=== PATIENT | male | born 1990 | race Caucasian/White ===

== ENCOUNTER 2016-11-11 20:02 | Emergency (ER) | payer OTHER ==
[~2016-11-11] VITALS: Ht 182.8 cm; Wt 79.4 kg
[2016-11-11 20:30] LABS: BASO % 0.2 % (0.0-1.0); EOS # 0.1 10*3/uL (0.0-0.4); EOS % 1.7 % (1.0-4.0); HEMATOCRIT 39.3 % (42.0-52.0); HEMOGLOBIN 14.1 g/dl (14.0-18.0); LYMPH # 2.1 10*3/uL (1.3-4.4); MEAN CELL VOLUME 88.9 fl (80.0-94.0); MEAN CORPUSCULAR HGB 31.9 pg (27.0-31.0); MEAN CORPUSCULAR HGB CONC 35.9 g/dl (33.0-37.0); MONO # 0.7 10*3/uL (0.1-1.0); MONO % 8.2 % (3.0-9.0); NEUT # 5.1 10*3/uL (2.3-7.9); NEUT % 63.7 % (47.0-73.0); PLATELET COUNT AUTOMATED 184 10*3/uL (130-400); RED BLOOD COUNT 4.42 10*6/uL (4.50-5.90); RED CELL DISTRI WIDTH 11.9 % (0-14.5); WHITE BLOOD COUNT 8.1 10*3/uL (4.8-10.8)
[2016-11-11 20:42] LABS: BUN 7 mg/dl (7-24); CARBON DIOXIDE 27 mmol/L (21-32); CHLORIDE 104 mmol/L (98-107); EST GLOM FILT AFRICAN AMERICAN > 60 ml/min; GLUCOSE 88 mg/dL (65-99); POTASSIUM 3.6 mmol/L (3.5-5.1); SODIUM 141 mmol/L (136-145)
[2016-11-11 21:54] LABS: BILIRUBIN NEGATIVE (NEGATIVE); BLOOD NEGATIVE (NEGATIVE); CLARITY SL CLOUDY (CLEAR); COLOR YELLOW (YELLOW); GLUCOSE NEGATIVE (NEGATIVE); KETONE TRACE (NEGATIVE); LEUKO ESTERASE NEGATIVE (NEGATIVE); NITRITE NEGATIVE (NEGATIVE); PROTEIN TRACE (NEGATIVE); SPECIFIC GRAVITY 1.015 (1.005-1.030)
[2016-11-11 22:00] LABS: BACTERIA 2+; MUCOUS 1+; RBC 0-2 rbc/hpf (0-2); URINE REFLEX COMMENT YES (NO)
[2016-11-11 22:03] LABS: URINE AMPHETAMINES > 1000 (1000ng/ml); URINE BARBITURATES < 200 (200ng/ml); URINE COCAINE > 300 (300ng/ml)
== END 2016-11-12 18:23 | disposition left against medical advice (07) ==
LOC: ED 20:02
PROVIDERS: Student in an Organized Health Care Education/Training Program
DX: F32.9 Major depressive disorder, single episode, unspecified (principal); F19.10 Other psychoactive substance abuse, uncomplicated

== ENCOUNTER 2017-04-03 20:32 | Emergency (ER) | payer OTHER ==
[~2017-04-03] VITALS: Ht 180.3 cm; Wt 86.2 kg
[2017-04-03 21:27] LABS: BILIRUBIN NEGATIVE (NEGATIVE); BLOOD NEGATIVE (NEGATIVE); CLARITY SL CLOUDY (CLEAR); COLOR YELLOW (YELLOW); GLUCOSE NEGATIVE (NEGATIVE); KETONE NEGATIVE (NEGATIVE); LEUKO ESTERASE 2+ (NEGATIVE); NITRITE NEGATIVE (NEGATIVE); SPECIFIC GRAVITY 1.025 (1.005-1.030)
[2017-04-03 21:37] LABS: BACTERIA 1+; EPITHELIAL CELLS 0-2; MUCOUS TRACE; WBC TNTC wbc/hpf (0-5)
[2017-04-03] MEDS ORDERED: CIPRO500 MG PO ×2 (22:53→22:55)
== END 2017-04-03 23:23 | disposition home or self-care (01) ==
LOC: ED 20:32
PROVIDERS: Emergency Medicine
DX: N39.0 Urinary tract infection, site not specified (principal); K46.9 Unspecified abdominal hernia without obstruction or gangrene; R11.0 Nausea; F32.9 Major depressive disorder, single episode, unspecified; F17.200 Nicotine dependence, unspecified, uncomplicated; F10.10 Alcohol abuse, uncomplicated

== ENCOUNTER 2017-04-18 02:19 | Emergency (ER) | payer OTHER ==
[~2017-04-18] VITALS: Ht 180.3 cm; Wt 72.6 kg
[~2017-04-18 02:19] MED LIST: CIPRO500 MG PO
[2017-04-18] MEDS ORDERED: CEPHALEXIN500 M1 PO (02:22)
[2017-04-18 04:18] LABS: BILIRUBIN NEGATIVE (NEGATIVE); BLOOD 2+ (NEGATIVE); CLARITY CLEAR (CLEAR); COLOR YELLOW (YELLOW); GLUCOSE NEGATIVE (NEGATIVE); KETONE NEGATIVE (NEGATIVE); LEUKO ESTERASE NEGATIVE (NEGATIVE); NITRITE NEGATIVE (NEGATIVE); SPECIFIC GRAVITY <= 1.005 (1.005-1.030); UROBILINOGEN 0.2 E.U./dl (0.2-1.0)
[2017-04-18 04:25] LABS: WBC 0-2 wbc/hpf (0-5)
== END 2017-04-18 04:35 | disposition home or self-care (01) ==
LOC: ED 02:19
PROVIDERS: Student in an Organized Health Care Education/Training Program
DX: N45.1 Epididymitis (principal)